=== PATIENT | male | born 1970 | race Caucasian/White ===

== ENCOUNTER 2023-12-25 05:51 | Day surgery (SDC) | payer OTHER ==
[2023-12-25] VITALS (7 sets, daily range): BP systolic 124–137; BP diastolic 80–91; PULSE 78–86; RESP 10–16; TEMP 98.5; O2SAT 95–98
[~2023-12-25] VITALS: Ht 180.3 cm; Wt 117.1 kg
[2023-12-25] MEDS: cefazolin 2gm/D5W 100mL 100 ML IV ONE (05:30)
[~2023-12-25 05:51] MED LIST: ESCI20TA PO; MULT-1085 PO; OMEG-5 PO; OMEP20TA23 PO; tranexamic acid inj. 1,000 MG in normal saline IV soln 100ML IV ONE
[2023-12-25] MEDS: famotidine 20mg tablet PO ONE (06:39)
[2023-12-25] MEDS: oxymetazoline 15 ML nasal spray NS ONE (06:39)
[2023-12-25] MEDS: ringers solution, lacted 1,000 ML IV SCH (06:40)
[2023-12-25] MEDS ORDERED: epiNEPHrine 1 mg/ml 30ml MDV ONE (07:07)
[2023-12-25] MEDS ORDERED: oxymetazoline 15 ML nasal spray NS ONE (07:07)
[2023-12-25] MEDS ORDERED: tranexamic acid 100mg/ml inj. ONE (07:08)
[2023-12-25] MEDS ORDERED: cocaine 4% topical solution 4ml bottle ONE (07:09)
[2023-12-25] MEDS ORDERED: LIDOcaine 1% w/EPI 1:100,000 inj. MDV 50 ML VIAL ONE (07:09)
[2023-12-25] MEDS ORDERED: midazolam 1 mg/ML 2ml injection ONE (07:32)
[2023-12-25] MEDS ORDERED: fentaNYL/PF 50MCG/1 ML 2ML syringe ONE (07:32)
[2023-12-25] MEDS ORDERED: acetaminophen 1,000mg/100ml IV 100 ML IV ONE (07:35)
[2023-12-25] MEDS ORDERED: hydrALAZINE 20mg/ml inj. IV PRN (07:35)
[2023-12-25] MEDS ORDERED: meperidine/PF 25mg/ml syringe IV PRN (07:35)
[2023-12-25] MEDS ORDERED: labetalol 20mg/4ml (5mg/ml) syringe IV PRN (07:35)
[2023-12-25] MEDS ORDERED: proCHLORperazine 10 MG/2 ml inj IV PRN (07:35)
[2023-12-25] MEDS ORDERED: morphine 4 MG/ML inj SYRINge IV PRN (07:35)
[2023-12-25] MEDS ORDERED: ringers solution, lacted 1,000 ML IV SCH (07:35)
[2023-12-25] MEDS ORDERED: ondansetron/PF 4mg/2ml inj IV PRN (07:35)
[2023-12-25] MEDS ORDERED: HYDROmorphone/PF 0.2 MG/ML SYRINGE IV PRN ×2 (07:35)
[2023-12-25] MEDS ORDERED: sevoflurane 250ml liquid IH ONE (07:38)
[2023-12-25] MEDS: cocaine 4% topical solution 4ml bottle TP ONE (08:00)
[2023-12-25] MEDS: mupirocin 2% cream 15gm TP ONE (08:00)
[2023-12-25] MEDS ORDERED: propofol inj 20 ML IV ONE ×2 (08:02→08:03)
[2023-12-25] MEDS ORDERED: dexamethasone sod phosphate 4mg/ml inj. ONE (08:02)
[2023-12-25] MEDS ORDERED: LIDOcaine 2% (20mg/ml) 5ml vial ONE (08:02)
[2023-12-25] MEDS ORDERED: ondansetron/PF 4mg/2ml inj ONE (08:02)
[2023-12-25] MEDS: mupirocin 2% ointment 22GM ONE (09:50)
[2023-12-25] MEDS: salt irrigation nasal spray 45 ML SPRAY NS PRN (09:52)
[2023-12-25] MEDS: morphine 2 MG/ML inj. syringe IV PRN (09:52)
[2023-12-25] MEDS: bacitracin 15gm ointment TP ONE (09:53)
== END 2023-12-25 10:00 | disposition home or self-care (01) ==
LOC: PAS 05:51
PROVIDERS: ATTEND Otolaryngology
DX: J34.2 Deviated nasal septum (principal); J34.3 Hypertrophy of nasal turbinates; J33.9 Nasal polyp, unspecified; K21.9 Gastro-esophageal reflux disease without esophagitis; G47.33 Obstructive sleep apnea (adult) (pediatric); F32.A Depression, unspecified; I20.9 Angina pectoris, unspecified; G43.909 Migraine, unspecified, not intractable, without status migrainosus; Z79.899 Other long term (current) drug therapy; Z98.890 Other specified postprocedural states
CPT/HCPCS: 82948; A4618; A6402; A7000; J0171; J0690; J1100; J2250; J2270; J2405; J2704; J3010; J3490; J7120